=== PATIENT | male | born 1950 | race Caucasian/White ===

== ENCOUNTER 2021-05-06 22:23 | Emergency (ER) | payer BC ==
[2021-05-06 22:34] VITALS: BP 110/65; PULSE 70
[2021-05-06] MEDS ORDERED: Lidocaine 1% 10 ML MDV INJECT ONE (22:43)
--- NOTE | 2021-05-06 22:46 | EDM.PDOC ---
ED HPI GENERAL MEDICAL PROBLEM - General Chief Complaint: Laceration Stated Complaint: FINGER LAC/LT MIDDLE Time Seen by Provider: 05/06/21 22:32 Source of Information: Reports: Patient, RN Notes Reviewed - History of Present Illness INITIAL COMMENTS - FREE TEXT/NARRATIVE: 70 yr old male suffered lac injury L middle finger cutting up deer. Stab wound radial aspect of mid finger. Last tetanus within 5 yrs. No other injury. - Related Data Allergies Allergy/AdvReac Type Severity Reaction Status Date / Time No Known Allergies Allergy Verified 09/29/14 13:42 Home Meds: Home Meds Aspirin [Manuel Chewable Aspirin] 81 mg PO ASDIRECTED 09/29/14 [History] Multivitamin [Multi-Vitamin Daily] 1 tab PO DAILY 09/29/14 [History] Rosuvastatin [Crestor] 5 mg PO DAILY 05/06/21 [History] Past Medical History Cardiovascular History: Reports: High Cholesterol Social & Family History - Tobacco Use Tobacco Use Status *Q: Never Tobacco User Second Hand Smoke Exposure: No - Recreational Drug Use Recreational Drug Use: No ED ROS GENERAL - Review of Systems Review Of Systems: See Below HEENT: Reports: No Symptoms Respiratory: Reports: No Symptoms Musculoskeletal: Reports: Other (lac injury L middle finger). Denies: Joint Pain Neurological: Denies: Numbness, Tingling, Weakness ED EXAM, SKIN/RASH Exam: See Below General Appearance: Alert, No Apparent Distress Respiratory/Chest: No Respiratory Distress Extremities: Other (1.5 cm lac radial aspect middle of L middle finger, mod erately deep, gaping) Neurological: Alert, Oriented, No Motor/Sensory Deficits Skin: Warm, Dry, Normal Color ED SKIN PROCEDURES - Laceration/Wound Repair Left Digit - 3rd (Middle) Appearance: Linear Distal NVT: Neuro & Vascular Intact Anesthetic Type: Local Local Anesthesia - Lidocaine (Xylocaine): 1% Plain Skin Prep: Saline Lac/Wound length In cm: 1.5 Suture Size: 3-0 Suture Type: Nylon Course - Vital Signs Last Recorded V/S: Last Vital Signs Temp 97 F 05/06/21 22:33 Pulse 70 05/06/21 22:33 Resp 16 05/06/21 22:33 BP 110/65 05/06/21 22:33 Pulse Ox 94 L 05/06/21 22:33 - Orders/Labs/Meds Meds: Medications Discontinued Medications Generic Name Dose Route Start Last Admin Trade Name Krzysztof PRN Reason Stop Dose Admin Lidocaine HCl 10 ml 05/06/21 22:43 05/06/21 22:51 Lidocaine 1% 10 Ml Mdv INJECT 05/06/21 22:44 10 ml ONETIME ONE Administration Departure - Departure Time of Disposition: 23:10 Disposition: Home, Self-Care 01 Clinical Impression: Finger laceration Qualifiers: Encounter type: initial encounter Finger: middle finger Damage to nail status: without damage Foreign body presence: without foreign body Laterality: left Qualified Code(s): S61.213A - Laceration without foreign body of left middle finger without damage to nail, initial encounter - Discharge Information Instructions: Laceration Care, Adult Referrals: Sudha Kam MD [Primary Care Provider] - Forms: ED Department Discharge Additional Instructions: Laceration care instr. Antibiotic ointment 2 to 3 times daily. Stitches out in about 10 days. Have rechecked any sign of infection. Sepsis Event Note (ED) - Evaluation Sepsis Screening Result: No Definite Risk - Focused Exam Vital Signs: Vital Signs Temp Pulse Resp BP Pulse Ox 05/06/21 22:33 97 F 70 16 110/65 94 L
== END 2021-05-06 23:15 | disposition home or self-care (01) ==
LOC: JD.ED 22:23
DX: S61.213A Laceration without foreign body of left middle finger without damage to nail, initial encounter (principal); Z79.82 Long term (current) use of aspirin; W26.8XXA Contact with other sharp object(s), not elsewhere classified, initial encounter
CPT/HCPCS: 12001; 99282-25

== ENCOUNTER → 2023-01-18 | Day surgery (SDC) | payer BC ==
[~2023-01-18] MED LIST: Lactated Ringers 1,000 ML IV SCH; Lidocaine 1% 2 ML ONE; Midazolam 1 MG/ML 2 ML SDV ONE; Propofol 200 MG/20 ML SDV ONE; Sodium Chloride 0.9% 10 ML Syringe FLUSH PRN; Sodium Chloride 0.9% 10 ML Syringe FLUSH SCH; fentaNYL 100 MCG/2 ML SDV ONE
[2023-01-18 11:25] VITALS: BP 120/84; PULSE 61
== END | disposition home or self-care (01) ==
LOC: JD.SDS 08:53
PROVIDERS: ATTEND Surgery
DX: K21.9 Gastro-esophageal reflux disease without esophagitis (principal); K29.50 Unspecified chronic gastritis without bleeding; E78.5 Hyperlipidemia, unspecified; E66.9 Obesity, unspecified; Z79.82 Long term (current) use of aspirin; Z79.899 Other long term (current) drug therapy; Z68.35 Body mass index [BMI] 35.0-35.9, adult
CPT/HCPCS: 43239; J2250; J2704; J3010; J7120; J3490